=== PATIENT | male | born 1970 | race Hispanic/Latino ===

== ENCOUNTER 2017-06-03 13:35 | Inpatient (IN) | payer SELFPAY ==
[~2017-06-03] VITALS: Ht 165.1 cm; Wt 78.2 kg
[2017-06-03] MEDS ORDERED: ONDANSETRON HCL MDV 20ML 2 MG/ML VIAL ONE (14:05)
[2017-06-03] MEDS ORDERED: KETOROLAC TROMETHAMINE 30MG/ML ONE (14:05)
[2017-06-03 14:21] LABS: BASOPHILS % (AUTO) 0.5 % (0.0-5.0); EOSINOPHILS % (AUTO) 0.6 % (0.0-8.0); HEMATOCRIT 42.9 % (42-54); LYMPHOCYTES % (AUTO) 29.7 % (21.0-51.0); MEAN CORPUSCULAR HEMOGLOBIN 32.3 pg (27.0-33.0); MEAN CORPUSCULAR HGB CONC 35.3 g/dL (32.0-36.0); MEAN CORPUSCULAR VOLUME 91.3 fL (79-99); MONOCYTES % (AUTO) 6.2 % (3.0-13.0); PLATELET COUNT (AUTO) 212 K/uL (130-400); WHITE BLOOD COUNT (AUTO) 10.8 K/uL (4.8-10.8)
[2017-06-03 14:28] LABS: CREATININE 1.1 mg/dL (0.5-1.5); POTASSIUM 3.8 mmol/L (3.5-5.1)
[2017-06-03 14:34] LABS: ALBUMIN 3.2 g/dL (3.5-5.0); BILIRUBIN,TOTAL 0.4 mg/dL (0.2-1.0); TOTAL PROTEIN, SERUM 7.7 g/dL (6.0-8.3)
[2017-06-03] MEDS ORDERED: HYDROMORPHONE 1 MG/1 ML AMP ONE ×3 (15:02→23:10)
[2017-06-03 16:37] LABS: APPEARANCE,URINE Clear (CLEAR); BILIRUBIN,URINE Negative (NEGATIVE); COLOR,URINE Yellow (YELLOW); GLUCOSE, URINE (UA) Negative (NEGATIVE); KETONES,URINE 15 mg/dL (NEGATIVE); LEUKOCYTE ESTERASE ,URINE Negative (NEGATIVE); NITRATE,URINE Negative (NEGATIVE); OCCULT BLOOD,URINE Negative (NEGATIVE); PROTEIN,URINE Negative (NEGATIVE); UROBILINOGEN,URINE 0.2 mg/dL (0.2-1.0)
[2017-06-03] MEDS ORDERED: MORPHINE SULFATE 2 MG/ML 1ML SYG ONE ×2 (16:37→21:14)
[2017-06-03] MEDS ORDERED: PROCALAMINE IV SOLUTION 1,000 ML IV SCH (16:45)
[2017-06-03] MEDS ORDERED: HYDROMORPHONE HCL 2 MG/ML VIAL IVP PRN (22:30)
[2017-06-03] MEDS ORDERED: HYDRALAZINE HCL 20 MG/ML VIAL IV PRN (22:30)
[2017-06-03] MEDS ORDERED: ONDANSETRON HCL 4 MG/2 ML VIAL IV PRN (22:30)
[2017-06-04] MEDS ORDERED: HYDROMORPHONE HCL 0.5 MG/0.5 ML ML ONE (03:30)
[2017-06-04 03:31] VITALS: BP 119/75
[2017-06-04 06:08] LABS: HEMATOCRIT 37.3 % (42-54); MEAN CORPUSCULAR HGB CONC 36.2 g/dL (32.0-36.0); PLATELET COUNT (AUTO) 164 K/uL (130-400); RED BLOOD CELL COUNT(AUTO) 4.09 MIL/uL (4.50-6.20); RED CELL DISTRIBUTION WIDTH 13.5 % (11.0-15.5); WHITE BLOOD COUNT (AUTO) 10.5 K/uL (4.8-10.8)
[2017-06-04] MEDS: MORPHINE SULFATE 2 MG/ML 1ML SYG IVP PRN ×2 (06:09→10:36)
[2017-06-04 06:22] LABS: CREATININE 1.2 mg/dL (0.5-1.5); MAGNESIUM 1.9 mg/dL (1.80-2.40); POTASSIUM 3.5 mmol/L (3.5-5.1)
[2017-06-04 08:00] VITALS: BP 113/73
[2017-06-04 08:18] LABS: HEMOGLOBIN A1C 5.7 % (4.0-6.0)
[2017-06-04] MEDS: ENOXAPARIN SODIUM 40 MG/0.4 ML SYRINGE SQ SCH (08:45)
[2017-06-04] MEDS: SODIUM CHLORIDE 0.9% 1000ML 1,000 ML IV SCH ×2 (08:45→19:55)
[2017-06-04] MEDS ORDERED: FAMOTIDINE/PF 20 MG/2 ML VIAL IV SCH (09:00)
[2017-06-04] MEDS ORDERED: PHARMACY COMMUNICATION MISC SCH (10:30)
[2017-06-04] MEDS ORDERED: POTASSIUM CHLORIDE 20 MEQ ERTAB PO PRN (10:45)
[2017-06-04] MEDS ORDERED: POTASSIUM CHLORIDE 10% ELIXIR 20 MEQ/15 ML UDCUP PO PRN (10:45)
[2017-06-04 11:29] VITALS: BP 110/68
[2017-06-04] MEDS: LIDOCAINE HCL-MPF 1% 2ML VIAL IVP PRN (13:47)
[2017-06-04] MEDS: POTASSIUM CHLORIDE 20MEQ/100ML 100 ML IV PRN (13:48)
[2017-06-04] MEDS: HYDROMORPHONE HCL 0.5 MG/0.5 ML ML IVP PRN ×2 (13:57→19:54)
[2017-06-04 16:00] VITALS: BP 114/74
[2017-06-04 19:52] VITALS: BP 123/77
[2017-06-04 23:41] VITALS: BP 115/70
[2017-06-05 04:31] VITALS: BP 125/79
[2017-06-05 05:27] LABS: BASOPHILS % (AUTO) 0.4 % (0.0-5.0); EOSINOPHILS % (AUTO) 2.3 % (0.0-8.0); HEMATOCRIT 37.8 % (42-54); LYMPHOCYTES % (AUTO) 15.5 % (21.0-51.0); MEAN CORPUSCULAR HEMOGLOBIN 32.8 pg (27.0-33.0); MEAN CORPUSCULAR HGB CONC 35.9 g/dL (32.0-36.0); MEAN CORPUSCULAR VOLUME 91.3 fL (79-99); MONOCYTES % (AUTO) 6.1 % (3.0-13.0); NEUTROPHILS % (AUTO) 75.7 % (40.0-77.0); PLATELET COUNT (AUTO) 155 K/uL (130-400); RED BLOOD CELL COUNT(AUTO) 4.14 MIL/uL (4.50-6.20); RED CELL DISTRIBUTION WIDTH 13.1 % (11.0-15.5); WHITE BLOOD COUNT (AUTO) 8.2 K/uL (4.8-10.8)
[2017-06-05 05:47] LABS: POTASSIUM 3.3 mmol/L (3.5-5.1)
[2017-06-05] MEDS: POTASSIUM CHLORIDE 20MEQ/100ML 100 ML IV PRN ×2 (06:31→13:35)
[2017-06-05] MEDS: LIDOCAINE HCL-MPF 1% 2ML VIAL IVP PRN ×2 (06:32→13:35)
[2017-06-05] MEDS: HYDROMORPHONE HCL 0.5 MG/0.5 ML ML IVP PRN ×3 (06:36→20:01)
[2017-06-05 08:00] VITALS: BP 126/73
[2017-06-05] MEDS: SODIUM CHLORIDE 0.9% 1000ML 1,000 ML IV SCH ×2 (08:48→14:00)
[2017-06-05] MEDS: ENOXAPARIN SODIUM 40 MG/0.4 ML SYRINGE SQ SCH (08:49)
[2017-06-05 12:00] VITALS: BP 124/64
[2017-06-05 16:00] VITALS: BP 161/82
[2017-06-05] MEDS: PROCALAMINE IV SOLUTION 1,000 ML IV SCH (20:08)
[2017-06-05 20:49] VITALS: BP 121/92
[2017-06-05 23:50] VITALS: BP 125/77
[2017-06-06 04:00] VITALS: BP 117/76
[2017-06-06 05:19] LABS: BASOPHILS % (AUTO) 0.3 % (0.0-5.0); EOSINOPHILS % (AUTO) 3.2 % (0.0-8.0); HEMATOCRIT 37.8 % (42-54); LYMPHOCYTES % (AUTO) 20.6 % (21.0-51.0); MEAN CORPUSCULAR HEMOGLOBIN 32.9 pg (27.0-33.0); MEAN CORPUSCULAR HGB CONC 35.7 g/dL (32.0-36.0); MEAN CORPUSCULAR VOLUME 92.2 fL (79-99); MONOCYTES % (AUTO) 7.6 % (3.0-13.0); NEUTROPHILS % (AUTO) 68.3 % (40.0-77.0); NUCLEATED RED BLOOD CELLS 0.1 % (0.0-0.19); PLATELET COUNT (AUTO) 174 K/uL (130-400); RED CELL DISTRIBUTION WIDTH 13.1 % (11.0-15.5); WHITE BLOOD COUNT (AUTO) 6.8 K/uL (4.8-10.8)
[2017-06-06 05:28] LABS: CREATININE 0.9 mg/dL (0.5-1.5); POTASSIUM 3.8 mmol/L (3.5-5.1)
[2017-06-06 07:30] VITALS: BP 119/79
[2017-06-06] MEDS: ENOXAPARIN SODIUM 40 MG/0.4 ML SYRINGE SQ SCH (09:04)
[2017-06-06] MEDS: PROCALAMINE IV SOLUTION 1,000 ML IV SCH (09:05)
[2017-06-06] MEDS: HYDROMORPHONE HCL 0.5 MG/0.5 ML ML IVP PRN (09:18)
[2017-06-06 11:00] VITALS: BP 125/82
== END 2017-06-06 15:45 | disposition home or self-care (01) | DRG 440 ==
LOC: EDH 13:35 → EDHIP 13:36 → OBSVTOIN 13:36 → 4BH 06-04 03:29
PROVIDERS: ADMIT Internal Medicine Nephrology; ATTEND Internal Medicine Nephrology
DX: K85.20 Alcohol induced acute pancreatitis without necrosis or infection (principal); K76.0 Fatty (change of) liver, not elsewhere classified; D64.9 Anemia, unspecified; E66.9 Obesity, unspecified; F10.10 Alcohol abuse, uncomplicated; Z68.28 Body mass index [BMI] 28.0-28.9, adult; Z82.49 Family history of ischemic heart disease and other diseases of the circulatory system; Z83.3 Family history of diabetes mellitus
CPT/HCPCS: 36415; 74176; 76705; 80048; 80053; 80061; 81003; 82150; 82948; 83036; 83690; 83735; 85025; 85027; J1170; J1650; J1885; J3480; J3490; J7030

== ENCOUNTER 2019-10-21 22:41 | Inpatient (IN) | payer SELFPAY ==
[~2019-10-21] VITALS: Ht 165.1 cm; Wt 75.1 kg
[2019-10-21 23:12] LABS: BASOPHILS % (AUTO) 0.3 % (0.0-5.0); EOSINOPHILS % (AUTO) 0.6 % (0.0-8.0); LYMPHOCYTES % (AUTO) 7.3 % (21.0-51.0); MEAN CORPUSCULAR HEMOGLOBIN 31.3 pg (27.0-33.0); MEAN CORPUSCULAR HGB CONC 35.2 g/dL (32.0-36.0); MEAN CORPUSCULAR VOLUME 88.9 fL (79-99); MONOCYTES % (AUTO) 2.3 % (3.0-13.0); NEUTROPHILS % (AUTO) 88.9 % (40.0-77.0); PLATELET COUNT (AUTO) 119 K/uL (130-400); RED BLOOD CELL COUNT(AUTO) 4.95 MIL/uL (4.50-6.20); RED CELL DISTRIBUTION WIDTH 12.6 % (11.0-15.5)
[2019-10-21] MEDS ORDERED: ONDANSETRON HCL 4 MG/2 ML VIAL ONE (23:20)
[2019-10-21] MEDS ORDERED: MORPHINE SULFATE 2 MG/ML 1ML SYG ONE (23:21)
[2019-10-21 23:24] LABS: CREATININE 1.3 mg/dL (0.5-1.5); POTASSIUM 3.4 mmol/L (3.5-5.1)
[2019-10-21 23:31] LABS: INR 0.89 (0.85-1.15); PARTIAL THROMBOPLASTIN TIME 29.2 SEC (26.3-35.5); PROTHROMBIN TIME 9.7 SEC (9.6-11.6)
[2019-10-21 23:32] LABS: ALBUMIN 3.4 g/dL (3.5-5.0); TOTAL PROTEIN, SERUM 8.1 g/dL (6.0-8.3)
[2019-10-22 00:03] LABS: APPEARANCE,URINE Clear (CLEAR); BILIRUBIN,URINE Negative (NEGATIVE); COLOR,URINE Yellow (YELLOW); GLUCOSE, URINE (UA) >=1000 mg/dL (NEGATIVE); KETONES,URINE Negative (NEGATIVE); LEUKOCYTE ESTERASE ,URINE Negative (NEGATIVE); NITRATE,URINE Negative (NEGATIVE); OCCULT BLOOD,URINE Negative (NEGATIVE); PH,URINE 5.5 (5.0-8.0); PROTEIN,URINE POS 1+ mg/dL (NEGATIVE); UROBILINOGEN,URINE 0.2 mg/dL (0.2-1.0)
[2019-10-22] MEDS ORDERED: LACTATED RINGERS 1000ML 1,000 ML, LACTATED RINGERS 1000ML 1,000 ML IV SCH (01:38)
[2019-10-22] MEDS ORDERED: ONDANSETRON HCL 4 MG/2 ML VIAL IV PRN (01:45)
[2019-10-22] MEDS ORDERED: ZOLPIDEM TARTRATE 5 MG TAB PO PRN (01:45)
[2019-10-22] MEDS ORDERED: NITROGLYCERIN 0.4 MG SL TAB SL PRN (01:45)
[2019-10-22] MEDS ORDERED: DiphenhydrAMINE HCL 50 MG/ML VIAL IV PRN (01:45)
[2019-10-22] MEDS ORDERED: DIPHENHYDRAMINE HCL 25 MG CAPSULE PO PRN (01:45)
[2019-10-22] MEDS ORDERED: LACTULOSE 20 GM/30 ML UDCUP PO PRN (01:45)
[2019-10-22] MEDS ORDERED: GUAIFENESIN-DM 200/20 MG 10 ML PO PRN (01:45)
[2019-10-22] MEDS ORDERED: MAG HYDROX/AL HYDROX/SIMETH 30 ML, LIDOCAINE HCL 2% VISCOUS 30 ML, DIPHENHYDRAMINE HCL ... PO PRN ×3 (01:45)
[2019-10-22] MEDS ORDERED: ACETAMINOPHEN 325 MG TAB PO PRN ×2 (01:45)
[2019-10-22] MEDS ORDERED: MORPHINE SULFATE 4 MG/1ML SYG IV PRN (01:45)
[2019-10-22] MEDS ORDERED: MAG HYDROX/AL HYDROX/SIMETH ES 30 ML SUSP UDCUP PO PRN (01:45)
[2019-10-22] MEDS ORDERED: LIDOCAINE HCL 2% VISCOUS 15 ML UDCUP ONE (02:14)
[2019-10-22] MEDS ORDERED: MAGNESIUM HYDROXIDE 30 ML/UDCUP ONE (02:14)
[2019-10-22] MEDS ORDERED: DiphenhydrAMINE HCL 25 MG/10 ML ELIXIR UDCUP ONE (02:14)
[2019-10-22] MEDS ORDERED: MORPHINE SULFATE 4 MG/1ML SYG ONE ×2 (02:15→12:10)
[2019-10-22 02:32] LABS: CHOLESTEROL 144 mg/dL (<200); HDL CHOLESTEROL 122 mg/dL (29-71); LDL DIRECT 59 mg/dL (0-99); TRIGLYCERIDES 360 mg/dL (30-200)
[2019-10-22] MEDS ORDERED: MORPHINE SULFATE 2 MG/ML 1ML SYG ONE (05:53)
[2019-10-22] MEDS ORDERED: LIDOCAINE HCL-MPF 1% 2ML VIAL IJ PRN (08:30)
[2019-10-22] MEDS ORDERED: POTASSIUM CHLORIDE 20MEQ/100ML 100 ML IV PRN (08:30)
[2019-10-22] MEDS: FAMOTIDINE/PF 20 MG/2 ML VIAL IV SCH (09:00)
[2019-10-22] MEDS ORDERED: FAMOTIDINE/PF 20 MG/2 ML VIAL IV SCH (09:00)
[2019-10-22] MEDS ORDERED: HEPARIN SODIUM 5000UNIT/ML 1ML VIAL ONE (09:29)
[2019-10-22] MEDS ORDERED: LIDOCAINE HCL-MPF 1% 2ML VIAL ONE (09:29)
[2019-10-22] MEDS ORDERED: POTASSIUM CHLORIDE 20MEQ/100ML 100 ML IV ONE (09:30)
[2019-10-22] MEDS ORDERED: FAMOTIDINE/PF 20 MG/2 ML VIAL IV ONE (09:30)
[2019-10-22 09:35] LABS: BASOPHILS % (AUTO) 0.2 % (0.0-5.0); EOSINOPHILS % (AUTO) 1.7 % (0.0-8.0); HEMATOCRIT 40.7 % (42-54); LYMPHOCYTES % (AUTO) 10.4 % (21.0-51.0); MEAN CORPUSCULAR HEMOGLOBIN 31.3 pg (27.0-33.0); MEAN CORPUSCULAR HGB CONC 34.9 g/dL (32.0-36.0); MEAN CORPUSCULAR VOLUME 89.8 fL (79-99); MONOCYTES % (AUTO) 3.2 % (3.0-13.0); NEUTROPHILS % (AUTO) 84.1 % (40.0-77.0); PLATELET COUNT (AUTO) 111 K/uL (130-400); RED BLOOD CELL COUNT(AUTO) 4.53 MIL/uL (4.50-6.20); RED CELL DISTRIBUTION WIDTH 12.9 % (11.0-15.5); WHITE BLOOD COUNT (AUTO) 10.8 K/uL (4.8-10.8)
[2019-10-22 09:43] LABS: ALBUMIN 2.9 g/dL (3.5-5.0); BILIRUBIN,DIRECT 0.4 mg/dL (0.0-0.3); BILIRUBIN,TOTAL 1.1 mg/dL (0.2-1.0); POTASSIUM 3.6 mmol/L (3.5-5.1); TOTAL PROTEIN, SERUM 7.4 g/dL (6.0-8.3)
[2019-10-22] MEDS: LACTATED RINGERS 1000ML 1,000 ML IV SCH ×2 (11:30→17:17)
[2019-10-22] MEDS ORDERED: LORAZEPAM 2 MG/ML 1 ML VIAL IVP PRN (13:45)
[2019-10-22] MEDS ORDERED: PHARMACY COMMUNICATION MISC PRN (13:45)
[2019-10-22] MEDS ORDERED: THIAMINE HCL 100 MG/ML 2ML VIAL IVP SCH (14:30)
[2019-10-22] MEDS ORDERED: LACTATED RINGERS 1000ML 1,000 ML IV ONE (14:31)
--- NOTE | 2019-10-22 18:35 | NUR ---
cm note pt resides with spouse, independent with ambulation/adls, no dme. no home services. provided alternate phone # [phone]. dc plan is [place] to home at [place]. provided with community resources. and rx assist info. Addendum: 10/22/19 at 1838 by ZAHRA GLOVER CM Amended: Links added.
[2019-10-22] MEDS ORDERED: CHLORDIAZEPOXIDE HCL 25 MG CAP ONE (18:52)
[2019-10-22 19:45] VITALS: BP 121/90
[2019-10-22] MEDS: INSULIN LISPRO 100 UNIT/ML 3ML SQ SCH (20:51)
[2019-10-22] MEDS: MORPHINE SULFATE 2 MG/ML 1ML SYG IV PRN (21:20)
[2019-10-22] MEDS: HEPARIN SODIUM 5000UNIT/ML 1ML VIAL SQ SCH (21:28)
[2019-10-23] VITALS: BP 134/85
[2019-10-23 01:54] LABS: BASOPHILS % (AUTO) 0.3 % (0.0-5.0); EOSINOPHILS % (AUTO) 1.8 % (0.0-8.0); LYMPHOCYTES % (AUTO) 14.9 % (21.0-51.0); MEAN CORPUSCULAR HEMOGLOBIN 31.6 pg (27.0-33.0); MEAN CORPUSCULAR VOLUME 92.8 fL (79-99); MONOCYTES % (AUTO) 4.4 % (3.0-13.0); NEUTROPHILS % (AUTO) 78.3 % (40.0-77.0); PLATELET COUNT (AUTO) 115 K/uL (130-400); RED BLOOD CELL COUNT(AUTO) 4.31 MIL/uL (4.50-6.20); RED CELL DISTRIBUTION WIDTH 13.2 % (11.0-15.5); WHITE BLOOD COUNT (AUTO) 9.5 K/uL (4.8-10.8)
[2019-10-23 02:02] LABS: CREATININE 1.1 mg/dL (0.5-1.5); POTASSIUM 4.1 mmol/L (3.5-5.1)
[2019-10-23 02:06] LABS: ALBUMIN 2.7 g/dL (3.5-5.0); BILIRUBIN,TOTAL 0.9 mg/dL (0.2-1.0); TOTAL PROTEIN, SERUM 7.2 g/dL (6.0-8.3)
[2019-10-23 03:35] VITALS: BP 118/80
[2019-10-23] MEDS: LACTATED RINGERS 1000ML 1,000 ML IV SCH ×4 (03:56→22:23)
[2019-10-23] MEDS: INSULIN LISPRO 100 UNIT/ML 3ML SQ SCH ×4 (06:08→21:00)
[2019-10-23 08:01] VITALS: BP 119/72
[2019-10-23] MEDS: HEPARIN SODIUM 5000UNIT/ML 1ML VIAL SQ SCH ×3 (09:00→22:34)
[2019-10-23] MEDS: FAMOTIDINE/PF 20 MG/2 ML VIAL IV SCH (09:00)
[2019-10-23] MEDS: FOLIC ACID 1 MG TABLET PO SCH ×2 (09:00→16:49)
[2019-10-23] MEDS: THIAMINE HCL 100 MG/ML 2ML VIAL IM SCH (09:00)
[2019-10-23] MEDS: MULTIVITAMIN TABLET PO SCH (09:00)
[2019-10-23 11:27] VITALS: BP 107/79
[2019-10-23 16:14] VITALS: BP 116/82
[2019-10-23 19:00] VITALS: BP 117/61
[2019-10-23] MEDS: CHLORDIAZEPOXIDE HCL 25 MG CAP PO PRN (22:20)
[2019-10-23 22:26] LABS: APPEARANCE,URINE Clear (CLEAR); BILIRUBIN,URINE Negative (NEGATIVE); COLOR,URINE Yellow (YELLOW); GLUCOSE, URINE (UA) Negative (NEGATIVE); KETONES,URINE >=160 mg/dL (NEGATIVE); LEUKOCYTE ESTERASE ,URINE Negative (NEGATIVE); NITRATE,URINE Negative (NEGATIVE); OCCULT BLOOD,URINE Negative (NEGATIVE); PH,URINE 5.5 (5.0-8.0); PROTEIN,URINE Trace mg/dL (NEGATIVE); UROBILINOGEN,URINE 0.2 mg/dL (0.2-1.0)
[2019-10-23 22:44] LABS: BACTERIA,URINE None Seen /HPF (None Seen); RBC,URINE 0-1 /HPF (0-1); SQUAMOUS EPITHELIAL CELL,UR Rare /HPF (0-2); WBC,URINE None Seen /HPF (0-1)
[2019-10-24] VITALS: BP 109/78
[2019-10-24 04:00] VITALS: BP 115/81
[2019-10-24 04:41] LABS: BASOPHILS % (AUTO) 0.2 % (0.0-5.0); EOSINOPHILS % (AUTO) 2.5 % (0.0-8.0); HEMATOCRIT 39.5 % (42-54); LYMPHOCYTES % (AUTO) 21.4 % (21.0-51.0); MEAN CORPUSCULAR HEMOGLOBIN 30.8 pg (27.0-33.0); MEAN CORPUSCULAR HGB CONC 32.9 g/dL (32.0-36.0); MEAN CORPUSCULAR VOLUME 93.6 fL (79-99); MONOCYTES % (AUTO) 7.5 % (3.0-13.0); NEUTROPHILS % (AUTO) 67.9 % (40.0-77.0); PLATELET COUNT (AUTO) 152 K/uL (130-400); RED BLOOD CELL COUNT(AUTO) 4.22 MIL/uL (4.50-6.20); RED CELL DISTRIBUTION WIDTH 12.9 % (11.0-15.5)
[2019-10-24 04:52] LABS: POTASSIUM 3.9 mmol/L (3.5-5.1)
[2019-10-24] MEDS: LACTATED RINGERS 1000ML 1,000 ML IV SCH ×2 (04:55→17:55)
[2019-10-24 04:56] LABS: ALBUMIN 2.5 g/dL (3.5-5.0); BILIRUBIN,TOTAL 0.7 mg/dL (0.2-1.0); TOTAL PROTEIN, SERUM 7.3 g/dL (6.0-8.3)
[2019-10-24] MEDS: INSULIN LISPRO 100 UNIT/ML 3ML SQ SCH ×4 (05:49→21:00)
[2019-10-24 08:13] VITALS: BP 117/78
[2019-10-24] MEDS: MULTIVITAMIN TABLET PO SCH (09:28)
[2019-10-24] MEDS: FAMOTIDINE/PF 20 MG/2 ML VIAL IV SCH (09:28)
[2019-10-24] MEDS: THIAMINE HCL 100 MG/ML 2ML VIAL IM SCH (09:29)
[2019-10-24] MEDS: HEPARIN SODIUM 5000UNIT/ML 1ML VIAL SQ SCH ×3 (09:32→20:06)
[2019-10-24 11:41] VITALS: BP 120/64
[2019-10-24 16:49] VITALS: BP 121/73
[2019-10-24 19:00] VITALS: BP 117/80
[2019-10-24] MEDS: CHLORDIAZEPOXIDE HCL 25 MG CAP PO PRN (20:05)
[2019-10-24] MEDS: MORPHINE SULFATE 2 MG/ML 1ML SYG IV PRN (22:12)
[2019-10-25] VITALS: BP 103/70
[2019-10-25] MEDS: LACTATED RINGERS 1000ML 1,000 ML IV SCH ×2 (01:19→09:17)
[2019-10-25 04:00] VITALS: BP 106/70
[2019-10-25 04:19] LABS: BASOPHILS % (AUTO) 0.4 % (0.0-5.0); EOSINOPHILS % (AUTO) 1.9 % (0.0-8.0); HEMATOCRIT 41.8 % (42-54); MEAN CORPUSCULAR HEMOGLOBIN 31.6 pg (27.0-33.0); MEAN CORPUSCULAR VOLUME 93.1 fL (79-99); PLATELET COUNT (AUTO) 175 K/uL (130-400); RED BLOOD CELL COUNT(AUTO) 4.49 MIL/uL (4.50-6.20); RED CELL DISTRIBUTION WIDTH 12.9 % (11.0-15.5); WHITE BLOOD COUNT (AUTO) 7.4 K/uL (4.8-10.8)
[2019-10-25 04:42] LABS: ALBUMIN 2.8 g/dL (3.5-5.0); BILIRUBIN,TOTAL 0.5 mg/dL (0.2-1.0); CREATININE 1.1 mg/dL (0.5-1.5); POTASSIUM 3.7 mmol/L (3.5-5.1); TOTAL PROTEIN, SERUM 7.7 g/dL (6.0-8.3)
[2019-10-25] MEDS: INSULIN LISPRO 100 UNIT/ML 3ML SQ SCH ×2 (06:02→11:30)
[2019-10-25 08:01] VITALS: BP 126/85
[2019-10-25] MEDS: HEPARIN SODIUM 5000UNIT/ML 1ML VIAL SQ SCH (08:41)
--- NOTE | 2019-10-25 08:50 | NUR ---
CURRENTLY ON CLEAR LIQUID DIET SPOKE TO Vandana DEGROOT NP FOR HOSPITALIST, TOLD ME PATIENT WAS STARTED ON CLEAR LIQUID DIET YESTERDAY AND THAT PATIENT SHOULD BE ON SOFT DIET FOR BREAKFAST TODAY. INFORMED Vandana DEGROOT NP THAT PATIENT STILL ON CLEAR LIQUID DIET FOR BREAKFAST. Vandana DEGROOT NP GAVE TO/RB TO ADVANCE PATIENT DIET TO FULL LIQUID NOW AND ADVANCE TOLERATED.
[2019-10-25] MEDS: THIAMINE HCL 100 MG/ML 2ML VIAL IM SCH (09:08)
[2019-10-25] MEDS: FOLIC ACID 1 MG TABLET PO SCH (09:09)
[2019-10-25] MEDS: FAMOTIDINE/PF 20 MG/2 ML VIAL IV SCH (09:09)
[2019-10-25] MEDS: MULTIVITAMIN TABLET PO SCH (09:09)
--- NOTE | 2019-10-25 09:35 | NUR ---
TOLERATING FULL LIQUID DIET PATIENT TOLERATING FULL LIQUID DIET FOR BREAKFAST, NO PAIN OR DISCOMFORTS REPORTED. EDUCATED ON PLAN OF CARE.PATIENT IN AGREEMENT TO ADVANCE DIET TO SOFT/BLAND DIET FOR LUNCH.
[2019-10-25 11:36] VITALS: BP 121/75
== END 2019-10-25 14:50 | disposition home or self-care (01) | DRG 439 ==
LOC: EDH 22:41 → EDHIP 22:42 → 3BH 10-22 19:45
PROVIDERS: ADMIT Internal Medicine; ATTEND Internal Medicine
DX: K85.90 Acute pancreatitis without necrosis or infection, unspecified (principal); E87.1 Hypo-osmolality and hyponatremia; D69.6 Thrombocytopenia, unspecified; E87.6 Hypokalemia; K76.0 Fatty (change of) liver, not elsewhere classified; E86.1 Hypovolemia; F10.10 Alcohol abuse, uncomplicated; Z83.3 Family history of diabetes mellitus
CPT/HCPCS: 36415; 71045; 74176; 76705; 80048; 80053; 80061; 80076; 81001; 81003; 82550; 82948; 83036; 83605; 83690; 84132; 84484; 85025; 85610; 85730; 93005; G0378; J1644; J2270; J2405; J3411; J3480; J3490; J7120

== ENCOUNTER 2022-05-07 02:08 | Emergency (ER) | payer OTHER ==
[~2022-05-07] VITALS: Ht 162.6 cm; Wt 73.5 kg
[2022-05-07 02:32] LABS: APPEARANCE,URINE CLEAR (CLEAR); BILIRUBIN,URINE NEGATIVE (NEGATIVE); GLUCOSE, URINE (UA) NEGATIVE (NEGATIVE); KETONES,URINE NEGATIVE (NEGATIVE); LEUKOCYTE ESTERASE ,URINE NEGATIVE Leu/uL (NEGATIVE); NITRATE,URINE NEGATIVE (NEGATIVE); OCCULT BLOOD,URINE NEGATIVE (NEGATIVE); PROTEIN,URINE NEGATIVE (NEGATIVE); UROBILINOGEN,URINE 0.2 mg/dL (0.2-1.0)
[2022-05-07 02:34] LABS: COLOR,URINE Light-Yellow (YELLOW)
[2022-05-07 02:42] LABS: BASOPHILS % (AUTO) 0.6 % (0.0-5.0); EOSINOPHILS % (AUTO) 1.6 % (0.0-8.0); HEMATOCRIT 40.8 % (42-54); LYMPHOCYTES % (AUTO) 62.7 % (21.0-51.0); MEAN CORPUSCULAR HEMOGLOBIN 33.8 pg (27.0-33.0); MEAN CORPUSCULAR HGB CONC 36.5 g/dL (32.0-36.0); MEAN CORPUSCULAR VOLUME 92.5 fL (79-99); MONOCYTES % (AUTO) 5.5 % (3.0-13.0); NEUTROPHILS % (AUTO) 29.4 % (40.0-77.0); PLATELET COUNT (AUTO) 171 K/uL (130-400); RED BLOOD CELL COUNT(AUTO) 4.41 MIL/uL (4.50-6.20); RED CELL DISTRIBUTION WIDTH 11.8 % (11.0-15.5); WHITE BLOOD COUNT (AUTO) 9.7 K/uL (4.8-10.8)
[2022-05-07 03:11] LABS: CREATININE 1.1 mg/dL (0.5-1.5); POTASSIUM 4.3 mmol/L (3.5-5.1)
[2022-05-07 03:15] LABS: ALBUMIN 3.6 g/dL (3.5-5.0); MAGNESIUM 1.9 mg/dL (1.80-2.40); TOTAL PROTEIN, SERUM 7.5 g/dL (6.0-8.3)
[2022-05-07 03:43] VITALS: BP 125/86
[2022-05-07] MEDS ORDERED: IBUP-2077 PO (05:43)
[2022-05-07] MEDS ORDERED: CYCL10TA16 PO (05:43)
== END 2022-05-07 05:59 | disposition home or self-care (01) ==
LOC: EDH 02:08
DX: R07.89 Other chest pain (principal); F41.9 Anxiety disorder, unspecified; F43.9 Reaction to severe stress, unspecified; F10.10 Alcohol abuse, uncomplicated; Y90.9 Presence of alcohol in blood, level not specified
CPT/HCPCS: 36415; 71045; 80053; 81003; 83735; 84484; 85025; 93005

== ENCOUNTER 2022-05-14 20:28 | Emergency (ER) | payer OTHER ==
[~2022-05-14] VITALS: Ht 165.1 cm; Wt 72.1 kg
[~2022-05-14 20:28] MED LIST: CYCL10TA16 PO; IBUP-2077 PO
[2022-05-14 21:31] VITALS: BP 140/82
[2022-05-14] MEDS ORDERED: IBUPROFEN 600 MG TABLET PO ONE (22:00)
[2022-05-14] MEDS ORDERED: ACETAMINOPHEN 500 MG TABLET PO ONE (22:00)
[2022-05-14] MEDS ORDERED: IBUP-2070 PO (22:37)
== END 2022-05-14 23:18 | disposition home or self-care (01) ==
LOC: EDH 20:28
DX: S62.307A Unspecified fracture of fifth metacarpal bone, left hand, initial encounter for closed fracture (principal); Z79.1 Long term (current) use of non-steroidal anti-inflammatories (NSAID); Z79.899 Other long term (current) drug therapy; W18.49XA Other slipping, tripping and stumbling without falling, initial encounter; Y93.89 Activity, other specified; Y92.89 Other specified places as the place of occurrence of the external cause; Y99.8 Other external cause status
CPT/HCPCS: 29125; 73130